=== PATIENT | female | born 1990 | race Caucasian/White ===

== ENCOUNTER 2019-08-09 18:31 | Emergency (ER) | payer BC ==
[~2019-08-09] VITALS: Ht 167.6 cm; Wt 61.2 kg
[2019-08-09 18:39] VITALS: Ht 167.6 cm; Wt 61.2 kg
[2019-08-09 19:31] VITALS: BP 123/87
== END 2019-08-09 21:04 | disposition home or self-care (01) ==
LOC: ED 18:31
DX: R09.1 Pleurisy (principal); R07.89 Other chest pain; R05 Cough
CPT/HCPCS: J1885